=== PATIENT | female | born 1970 | race Caucasian/White ===

== ENCOUNTER 2021-04-28 14:04 | Emergency (ER) | payer MEDICARE, OTHER ==
[~2021-04-28] VITALS: Ht 167.6 cm; Wt 125.0 kg
[2021-04-28] MEDS ORDERED: KETOROLAC TROMETHAMINE 10 MG TAB PO ONE (17:10)
[2021-04-28] MEDS ORDERED: methocarbamoL 500 MG TAB PO ONE (17:10)
[2021-04-28] MEDS ORDERED: KETO10TAB PO ×2 (17:21→17:28)
[2021-04-28] MEDS ORDERED: METH-1164 PO (17:22)
[2021-04-28 17:35] VITALS: BP 145/80
== END 2021-04-28 17:44 | disposition home or self-care (01) ==
LOC: M ED 14:04
DX: M54.30 Sciatica, unspecified side (principal); E11.9 Type 2 diabetes mellitus without complications; K21.9 Gastro-esophageal reflux disease without esophagitis; K57.30 Diverticulosis of large intestine without perforation or abscess without bleeding; K74.60 Unspecified cirrhosis of liver; R51.9 Headache, unspecified; E83.01 Wilson's disease; J45.909 Unspecified asthma, uncomplicated; Z86.711 Personal history of pulmonary embolism; Z98.61 Coronary angioplasty status; R06.81 Apnea, not elsewhere classified; Z96.653 Presence of artificial knee joint, bilateral; Z91.013 Allergy to seafood; Z91.89 Other specified personal risk factors, not elsewhere classified; Z91.030 Bee allergy status